=== PATIENT | female | born 1955 | race Caucasian/White ===

== ENCOUNTER → 2016-11-16 | Outpatient (CLI) | payer OTHER ==
[2016-11-16 18:51] LABS: URINE APPEARANCE CLEAR (CLEAR); URINE BILIRUBIN NEG (NEG); URINE COLOR YELLOW; URINE EPITHELIAL CELL AUTO 20-30 /lpf (0-5); URINE NITRITE NEG (NEG); UROBILINOGEN NEG (NEG)
[2016-11-16 18:57] LABS: MANUAL MICROSCOPIC REQUIRED? NO; REVIEW REQ? NO
== END | disposition home or self-care (01) ==
LOC: C.LABSPEC 17:17
PROVIDERS: ATTEND Nurse Practitioner
DX: R31.9 Hematuria, unspecified (principal)

== ENCOUNTER → 2016-11-23 | Outpatient (CLI) | payer OTHER ==
[2016-11-23 12:06] LABS: BASO % 0.5 %; BASO ABS # 0.03 K/uL (0-0.2); COMPLETE YES; EOS % 2.6 %; HEMATOCRIT 43.9 % (37-47); IG% 0.2 %; LYMPH % 36.9 %; LYMPH ABS # 2.13 K/uL (1.2-3.4); MEAN CELL VOLUME 89.8 fL (80-100); MEAN CORPUSCULAR HEMOGLOBIN 29.9 pg (25-34); MEAN CORPUSCULAR HGB CONC 33.3 g/dl (32-36); MEAN PLATELET VOLUME 10.7 fL (7.4-10.4); MONO % 8.8 %; PLATELET COUNT 266 K/uL (130-400); RED BLOOD COUNT 4.89 M/uL (4.2-5.4); WHITE BLOOD COUNT 5.78 K/uL (4.8-10.8)
[2016-11-23 12:25] LABS: ALT/SGPT 31 U/L (12-78); BLOOD UREA NITROGEN 19 mg/dl (7-18); BUN/CREATININE RATIO 19.3 (10-20); CALCIUM 8.9 mg/dl (8.5-10.1); CARBON DIOXIDE 25 mmol/L (21-32); CHLORIDE 110 mmol/L (98-107); CHOLESTEROL 218 mg/dl (0-200); CREATININE 0.98 mg/dl (0.60-1.20); GLUCOSE 99 mg/dl (70-99); POTASSIUM 3.8 mmol/L (3.5-5.1); SODIUM 140 mmol/L (136-145); TRIGLYCERIDES 122 mg/dl (0-150); VERY LOW DENSITY LIPOPROT CALC 24 mg/dl
[2016-11-23 12:35] LABS: ALKALINE PHOSPHATASE 98 U/L (45-117); AST/SGOT 20 U/L (15-37); CHOLESTEROL/HDL RATIO 4.1; HDL CHOLESTEROL 53 mg/dl; LDL CHOLESTEROL CALCULATED 141 mg/dl
[2016-11-23 12:39] LABS: ESTIMATED AVERAGE GLUCOSE 111 mg/dl; HA1C FLAG Normal (Normal)
--- NOTE | 2016-11-29 10:34 | CODING QUERY MEDICAL NECESSITY ---
CQSUPPORTING DIAGNOSIS NEEDED A supporting diagnosis is required for the test/procedure performed on this patient in order for us to be reimbursed by the patient's insurance. Please provide a supporting diagnosis for the following test/procedure listed below next to the test name along with your signature. *If there is no additional diagnosis for this patient that would support the following test/procedure please document that below next to the test/procedure. Test(s)/Procedure(s) that require a supporting diagnosis: DOS 11/23/16 VITAMIN D TEST HEOGLOBIN TEST Provider Signature: Date: Thank you Jaida Douglas Health Information Management Once completed, please kindly fax back to [phone] For questions please call [phone]
== END | disposition home or self-care (01) ==
LOC: C.LABPBG 07:25
PROVIDERS: ATTEND Nurse Practitioner
DX: Z00.00 Encounter for general adult medical examination without abnormal findings (principal); N39.0 Urinary tract infection, site not specified; E78.00 Pure hypercholesterolemia, unspecified

== ENCOUNTER → 2017-12-14 | Outpatient (CLI) | payer OTHER ==
[2017-12-14 13:50] LABS: ALBUMIN 3.7 gm/dl (3.4-5.0); ALKALINE PHOSPHATASE 100 U/L (45-117); ALT/SGPT 29 U/L (12-78); AST/SGOT 20 U/L (15-37); BLOOD UREA NITROGEN 23 mg/dl (7-18); CALCIUM 8.4 mg/dl (8.5-10.1); CARBON DIOXIDE 25 mmol/L (21-32); CHOLESTEROL 188 mg/dl (0-200); CREATININE 0.97 mg/dl (0.60-1.20); GLUCOSE 98 mg/dl (70-99); LDL CHOLESTEROL CALCULATED 118 mg/dl; POTASSIUM 4.2 mmol/L (3.5-5.1); SODIUM 139 mmol/L (136-145); TOTAL PROTEIN 7.3 gm/dl (6.4-8.2)
== END | disposition home or self-care (01) ==
LOC: C.LABPBG 08:03
PROVIDERS: ATTEND Nurse Practitioner Family
DX: Z00.00 Encounter for general adult medical examination without abnormal findings (principal); E03.9 Hypothyroidism, unspecified; E78.00 Pure hypercholesterolemia, unspecified; E55.9 Vitamin D deficiency, unspecified

== ENCOUNTER 2018-11-05 16:55 | Inpatient (IN) ==
[2018-11-05] MEDS ORDERED: HYDROCODONE/ACETAMOPHEN 5/325MG TAB PO ONE (17:15)
[2018-11-05] MEDS ORDERED: IBUPROFEN 600 MG TAB PO STA (17:15)
--- NOTE | 2018-11-05 17:35 | XRay Report ---
XR ankle LT min 3V routine CLINICAL HISTORY: medial ankle pain COMPARISON: None. DISCUSSION: There is an oblique fracture of the distal fibula. There is a transverse fracture of the medial malleolus. There is no evidence of dislocation. There are prominent Achilles insertional calci fications. IMPRESSION: Acute fractures of the medial malleolus and distal fibula. No evidence of dislocation Electronically signed by: Vern Williamson M.D. 11/05/2018 5:34 PM
--- NOTE | 2018-11-05 17:58 | Emergency Department Note ---
ED Provider Note CHIEF COMPLAINT: Ankle pain HISTORY OF PRESENT ILLNESS: This patient is a pleasant 62-year-old female who presents to the emergency department in a wheelchair for evaluation of left ankle pain. The patient's dog accidentally took her legs out from under her. She thinks that she twisted her ankle. She reports hearing a crack. She has been unable to bear weight on the area. She denies any pain into the foot. No numbness or tingling. She has not taken anything for pain. She denies any prior history of injury to this ankle. REVIEW OF SYSTEMS: 10 system review performed and negative unless noted in HPI or below. ALLERGIES: No known drug allergies MEDICATIONS: Synthroid, baby aspirin PMH: Hypothyroidism SOCIAL HISTORY: She does not smoke. She lives at home with her family. PHYSICAL EXAM: VITALS: Vitals are noted on the nurse's note and reviewed by myself. BP high but vital signs stable. GENERAL: 62-year-old female, in mild discomfort. SKIN: The skin was intact HEAD: Normocephalic atraumatic. EYES: Extraocular movements intact. NECK: Trachea midline. HEART: Regular rate and rhythm without murmurs gallops or rubs. LUNGS: Clear to auscultation bilaterally without wheezes, rales or rhonchi. No accessory muscle use. ABDOMEN: Positive bowel sounds x 4.Soft, MUSCULOSKELETAL: Diffuse edema noted over the malleoli right greater than left. No tenderness over the calcaneus or metatarsals. Capillary refill in the toes is less than 2 seconds. DP pulse +2. The patient is able to wiggle the toes. NEURO: Patient was alert and oriented to person place and time. Normal sensation to touch. No focal neurological deficits. EMERGENCY DEPARTMENT COURSE: I examined the patient. She was medicated with ibuprofen and Jess[place]. X-rays of the left ankle were reviewed by myself and read by radiology IMPRESSION: Acute fractures of the medial malleolus and distal fibula. No evidence of dislocation Electronically signed by: Vern Williamson M.D. 11/05/2018 5:34 PM Dictated: 11/05/18 1733 Transcribed: 11/05/18 173 These findings were discussed with the patient. She voiced understanding. She would like to see [facility]. Saline lock was established, labs were drawn. She declined more pain medication. The findings were discussed with Dr. Guzman from [facility]. The case was then discussed with case management and subsequently the [facility] hospitalist group. They kindly agreed to evaluate the patient for possible inpatient management. . Per orthopedic recommendation, the patient was placed in a posterior short leg Ortho-Glass splint with a stirrup. Neurovascular status was rechecked and intact. DIAGNOSIS: Bimalleolar ankle fracture DISPOSITION: Hospitalist consultation for possible inpatient management Impression & Plan Bimalleolar ankle fracture Past Med/Surg History Medical History Hypothyroidism Social History Preferred Language: Kazakh Communication Ability: Effective Merchant Banker Required: No Beliefs That Will Affect Care: None Current Living Situation: Spouse Other Information That Helps Us Care for You: No Feels Safe at Home: Yes Safety Concerns: Feels Safe At This Time Smoking Status: Never smoker Hx Alcohol Use: No Hx Substance Use: No Results & Data Vital Signs Vital Signs - 24 hr 11/05/18 16:56 11/05/18 20:55 Temperature 36.5 C Temperature Source Oral Sepsis Recent Fever Within 48 Hours No Sepsis Action Taken by Nursing No Action Required Pulse Rate 72 Pulse Rate [Right Finger] 53 L Respiratory Rate 18 17 Respiratory Effort / Characteristics Non-Labored Spontaneous Respiratory Depth Normal Blood Pressure 190/86 H Blood Pressure [Right Arm] 171/68 H Blood Pressure Mean 120 Blood Pressure Mean [Right Arm] 102 Blood Pressure Position Sitting Pulse Oximetry 97 97 Oxygen Delivery Method Room Air Room Air Laboratory Data Result diagrams: 11/05/18 19:31 11/05/18 19:31 Lab Results 11/05/18 11/05/18 11/05/18 Range/Units 19:31 19:31 19:31 WBC 11.08 H (4.8-10.8) K/uL RBC 4.86 (4.2-5.4) M/uL Hgb 15.0 (12.0-16.0) g/dL Hct 43.3 (37-47) % MCV 89.1 (80-100) fL MCH 30.9 (25-34) pg MCHC 34.6 (32-36) g/dL RDW Std Deviation 44.6 (36.4-46.3) fL RDW Coeff of Keshav 13.6 (11.5-14.5) % Plt Count 269 (130-400) K/uL MPV 10.5 H (7.4-10.4) fL Immature Gran % (Auto) 0.3 % Neut % (Auto) 76.1 % Lymph % (Auto) 15.4 % [place] % (Auto) 6.8 % Eos % (Auto) 1.0 % Baso % (Auto) 0.4 % Immature Gran # (Auto) 0.03 H (0.00-0.02) K/uL Neut # (Auto) 8.44 H (1.4-6.5) K/uL Lymph # (Auto) 1.71 (1.2-3.4) K/uL [place] # (Auto) 0.75 H (0.11-0.59) K/uL Eos # (Auto) 0.11 (0-0.5) K/uL Baso # (Auto) 0.04 (0-0.2) K/uL PT 10.0 (9.0-12.0) Seconds INR 1.0 (0.9-1.1) Sodium 139 (136-145) mmol/L Potassium 3.8 (3.5-5.1) mmol/L Chloride 107 (98-107) mmol/L Carbon Dioxide 26 (21-32) mmol/L Anion Gap 6.0 (3-11) BUN 19 H (7-18) mg/dl Creatinine 1.20 (0.6-1.2) mg/dl Est Cr Clr Drug Dosing 48.9 ml/min Est GFR ( Amer) 55.3 Est GFR (Non-Af Amer) 47.7 BUN/Creatinine Ratio 15.7 (10-20) Glucose 118 H (70-99) mg/dl Calcium 9.0 (8.5-10.1) mg/dl Administered Medications Acetaminophen (Ofirmev) 1,000 mg in 100 mls @ 400 mls/hr IV Q8H PRN PRN Reason: Pain or Fever Stop: 12/05/18 22:18 Last Infusion: 11/06/18 00:02 Dose: 0 mls/hr Documented by: [id number] Admin: 11/05/18 23:45 Dose: 400 mls/hr Documented by: [id number] Potassium Chloride/Sodium Chloride (Normal Saline W/20 Meq Kcl) 20 meq in 1,000 mls @ 100 mls/hr IV .Q10H SUSIE Stop: 12/05/18 22:44 Last Infusion: 11/06/18 00:02 Dose: 100 mls/hr Documented by: [id number] Infusion: 11/05/18 23:45 Dose: 0 mls/hr Documented by: [id number] Admin: 11/05/18 22:46 Dose: 100 mls/hr Documented by: [id number] Lorazepam (Ativan) 0.5 mg PO Q8 PRN PRN Reason: Anxiety Stop: 12/05/18 22:45 Last Admin: 11/05/18 22:55 Dose: 0.5 mg Documented by: [id number] Discontinued Medications Hydrocodone Bitart/Acetaminophen (Jessup 5/325) 1 tab PO ONE ONE Stop: 11/05/18 17:16 Last Admin: 11/05/18 17:20 Dose: 1 tab Documented by: [id number] Ibuprofen (Motrin) 600 mg PO NOW STA Stop: 11/05/18 17:16 Last Admin: 11/05/18 17:19 Dose: 600 mg Documented by: [id number] Discharge Plan Visit Data *Final* Discharge Date/Time: 11/05/18 22:08 Chief Complaint: Ankle Pain Stated Complaint: L ANKLE PAIN ED Provider: Marcelino Andrews ED Midlevel Provider: Anette Bourgeois Discharge Problem: Bimalleolar ankle fracture Patient Disposition: Admitted As Inpatient Condition: Fair Discharge Instructions Interventions: ED Discharge Assessment Last Done: 11/05/18 22:08 Discharge Problem: Bimalleolar ankle fracture Qualifiers: Encounter type: initial encounter Fracture type: closed Laterality: left Qualified Code(s): S82.842A - Displaced bimalleolar fracture of left lower leg, initial encounter for closed fracture
[2018-11-05 19:43] LABS: Basophils # (auto) 0.04 K/uL (0-0.2); Basophils % (auto) 0.4 %; Eosinophils # (auto) 0.11 K/uL (0-0.5); Hematocrit (blood only) 43.3 % (37-47); Immature Granulocytes # (auto) 0.03 K/uL (0.00-0.02); Immature Granulocytes % (auto) 0.3 %; Lymphocytes # (auto) 1.71 K/uL (1.2-3.4); Lymphocytes % (auto) 15.4 %; Mean Corpuscular Hgb Conc 34.6 g/dL (32-36); Mean Corpuscular Volume 89.1 fL (80-100); Mean Platelet Volume 10.5 fL (7.4-10.4); Monocytes # (auto) 0.75 K/uL (0.11-0.59); Monocytes % (auto) 6.8 %; Neutrophils # (auto) 8.44 K/uL (1.4-6.5); Neutrophils % (auto) 76.1 %; Platelet Count 269 K/uL (130-400); RDW Coefficient of Variation 13.6 % (11.5-14.5); RDW Standard Deviation 44.6 fL (36.4-46.3); Red Blood Count 4.86 M/uL (4.2-5.4); White Blood Count 11.08 K/uL (4.8-10.8)
[2018-11-05 20:01] LABS: BUN Creatinine Ratio 15.7 (10-20); Creatinine Clr Calc Pharmacy 48.9 ml/min; Est GFR (African American) 55.3; Est GFR (Non-African American) 47.7; Potassium 3.8 mmol/L (3.5-5.1)
--- NOTE | 2018-11-05 21:00 | History & Physical Report ---
Date of Service November 05, 2018 Assessment & Plan (1) Bimalleolar ankle fracture: Left bimalleolar ankle fracture- N.p.o. after midnight NSS + KCl 20 mEq at 100 mils per hour. Acetaminophen 1 g IV every 8 hours PRN mild pain or temperature. Morphine sulfate 2 mg IV every 4 hours PRN severe pain. Zofran 4 mg IV every 6 hours PRN. Lorazepam 0.5 mg p.o. every [address] Consult Dr. Guzman from [facility], he is already aware of patient. Present on Admission?: Yes (2) Hypothyroidism (acquired): Continue levothyroxine sodium 100 mcg p.o. daily. Present on Admission?: Yes History of Present Illness Chief Complaint: The patient presents to the emergency department with complaint of severe left ankle pain after she was made off balance accidentally by her dog, and twisted her right ankle. Primary Care Provider: Radha Martinez MD The patient is a 62-year-old female with a past medical history including hypothyroidism, who was accidentally made off balance by her dog, twisting her left ankle, resulting in immediate severe pain. She was brought into the emergency department in a wheelchair. Work-up in the ED included x-rays which showed a left medial malleolus fracture and distal fibula fracture. She was placed in a support immobilizer, and referred for evaluation for admission. She does report a history of a fracture in her right ankle, by a different dog in the past. Allergies Allergy/AdvReac Type Severity Reaction Status Date / Time No Known Allergies Allergy Verified 11/05/18 17:14 Home Medications Home Medications Medication Instructions Recorded Confirmed Type aspirin 81 mg PO QAM 11/05/18 11/05/18 History aspirin [Aspirin Low Dose] 81 mg PO DAILY 11/05/18 11/05/18 History cholecalciferol (vitamin D3) 2,000 unit PO DAILY 11/05/18 11/05/18 History [Vitamin D3] cholecalciferol (vitamin D3) 2,000 unit PO QAM 11/05/18 11/05/18 History [Vitamin D3] levothyroxine 100 mcg PO DAILY 11/05/18 11/05/18 History levothyroxine 100 mcg PO QAM 11/05/18 11/05/18 History Past Med/Surg History Medical History Hypothyroidism Social History Preferred Language: Ukrainian Communication Ability: Effective Patrol Police Sergeant Required: No Beliefs That Will Affect Care: None Current Living Situation: Spouse Other Information That Helps Us Care for You: No Feels Safe at Home: Yes Safety Concerns: Feels Safe At This Time Smoking Status: Never smoker Hx Alcohol Use: No Hx Substance Use: No Review of Systems Review of Systems: The patient denies chest pain, palpitations, shortness of breath, dyspnea on exertion, cough, lower extremity swelling, sore throat, fevers, chills, sweats, weight change, fatigue, nausea, vomiting, diarrhea , constipation, abdominal pain, pelvic pain, blood in urine or stool, dysuria, urinary frequency or urgency, lightheadedness, dizziness, headache, memory loss, loss of consciousness, rash, abnormal bruising or bleeding, generalized weakness, numbness or tingling in arms, generalized arthralgias or myalgias, back or neck pain, or night sweats. The review of systems is otherwise negative other than for that already noted above, and at least 10 systems have been reviewed. Physical Exam Physical Exam: The patient is awake, alert and oriented 3, well developed and well nourished, normocephalic and atraumatic, lying in bed and in no acute distress. HEENT--PERRL, EOMI, mucous membranes and oropharynx dry. Neck--supple. No JVD. No bruits. Thyroid normal, trachea midline, no adenopathy. Heart--normal S1 and S2. No murmurs, rubs or gallops. Lungs--clear bilaterally, no respiratory distress, no accessory muscle use. Abdomen--normal bowel sounds and soft. Nontender. Nondistended, no hernias or masses, no organomegaly. Extremities--no cyanosis or clubbing. No edema. Left foot is in a wrapped immobilizer up to the knee. Dermatologic--normal skin turgor, normal color, no abnormal lymph nodes, no rash. Neurologic--cranial nerves II through XII grossly intact. Rheumatologic--normal range of motion limited by left lower extremity. Psychiatric--normal affect. Results & Data Vital Signs (Past 12 Hours) Vital Signs Temp Pulse Pulse Resp BP BP Pulse Ox 11/05/18 20:55 53 L 17 171/68 H 97 11/05/18 16:56 97.7 F 72 18 190/86 H 97 Laboratory Results Laboratory Results WBC 11.08 K/uL (4.8-10.8) H 11/05/18 19:31 RBC 4.86 M/uL (4.2-5.4) 11/05/18 19:31 Hgb 15.0 g/dL (12.0-16.0) 11/05/18 19:31 Hct 43.3 % (37-47) 11/05/18 19:31 MCV 89.1 fL (80-100) 11/05/18 19:31 MCH 30.9 pg (25-34) 11/05/18 19:31 MCHC 34.6 g/dL (32-36) 11/05/18 19:31 RDW Std Deviation 44.6 fL (36.4-46.3) 11/05/18 19:31 RDW Coeff of Keshav 13.6 % (11.5-14.5) 11/05/18 19:31 Plt Count 269 K/uL (130-400) 11/05/18 19:31 MPV 10.5 fL (7.4-10.4) H 11/05/18 19:31 Immature Gran % (Auto) 0.3 % 11/05/18 19:31 Neut % (Auto) 76.1 % 11/05/18 19:31 Lymph % (Auto) 15.4 % 11/05/18 19:31 [place]rick % (Auto) 6.8 % 11/05/18 19:31 Eos % (Auto) 1.0 % 11/05/18 19:31 Baso % (Auto) 0.4 % 11/05/18 19:31 Immature Gran # (Auto) 0.03 K/uL (0.00-0.02) H 11/05/18 19:31 Neut # (Auto) 8.44 K/uL (1.4-6.5) H 11/05/18 19:31 Lymph # (Auto) 1.71 K/uL (1.2-3.4) 11/05/18 19:31 Merrick # (Auto) 0.75 K/uL (0.11-0.59) H 11/05/18 19:31 Eos # (Auto) 0.11 K/uL (0-0.5) 11/05/18 19:31 Baso # (Auto) 0.04 K/uL (0-0.2) 11/05/18 19:31 PT 10.0 Seconds (9.0-12.0) 11/05/18 19:31 INR 1.0 (0.9-1.1) 11/05/18 19:31 Sodium 139 mmol/L (136-145) 11/05/18 19:31 Potassium 3.8 mmol/L (3.5-5.1) 11/05/18 19:31 Chloride 107 mmol/L (98-107) 11/05/18 19:31 Carbon Dioxide 26 mmol/L (21-32) 11/05/18 19:31 Anion Gap 6.0 (3-11) 11/05/18 19:31 BUN 19 mg/dl (7-18) H 11/05/18 19:31 Creatinine 1.20 mg/dl (0.6-1.2) 11/05/18 19:31 Est Cr Clr Drug Dosing 48.9 ml/min 11/05/18 19:31 Est GFR ( Amer) 55.3 11/05/18 19:31 Est GFR (Non-Af Amer) 47.7 11/05/18 19:31 BUN/Creatinine Ratio 15.7 (10-20) 11/05/18 19:31 Glucose 118 mg/dl (70-99) H 11/05/18 19:31 Calcium 9.0 mg/dl (8.5-10.1) 11/05/18 19:31 Diagnostic Findings [facility], [place] [phone] XRay Report Patient: Emiliana CRISTOBAL Date: 11/05/18 MR#: [id number]: [facility] Acct ID:[id number]: [facility] Zip[facility] [place] [address] Age: 62Location: ED Sex: F Room/Bed: Att Phy: Diagnosis: L ANKLE PAIN Iraida Phy: Radha Martinez MDService Date: 11/05/18 [facility] Phy: Interpreting Phy: Vern Williamson MD Admit Phy: Ordering Phy: Anette Bourgeois PA-C cc: ~ XR ankle LT min 3V routine CLINICAL HISTORY: medial ankle pain COMPARISON: None. DISCUSSION: There is an oblique fracture of the distal fibula. There is a transverse fracture of the medial malleolus. There is no evidence of dislocation. There are prominent Achilles insertional calcifications. IMPRESSION: Acute fractures of the medial malleolus and distal fibula. No evidence of dislocation Electronically signed by: Vern Williamson M.D. 11/05/2018 5:34 PM Dictated: 11/05/18 1733 Transcribed: 11/05/18 1733 Code Status & VTE Plan Code Status Full code VTE Prophylaxis Plan VTE Prophylaxis will be ordered: Yes PG Care Time/CCT Total # of Minutes Spent Total Time Spent with Patient: Total time spent is greater than 50% in coordination of care (as documented) at patient's floor/unit and/or counseling patient: (1) Bimalleolar ankle fracture Encounter type: initial encounter Fracture type: closed Laterality: left Qualified Code(s): S82.842A - Displaced bimalleolar fracture of left lower leg, initial encounter for closed fracture
[2018-11-05] MEDS ORDERED: ONDANSETRON INJ 2 MG/ML 2 ML VIAL IV PRN (22:19)
[2018-11-05] MEDS ORDERED: ACETAMINOPHEN 1,000 MG/100 ML VIAL IV PRN (22:19)
[2018-11-05] MEDS ORDERED: MoRPHine SULFATE 2 MG/ML CARP IV PRN (22:19)
[2018-11-05] MEDS: NSS + 20MEQ KCL 20 MEQ/1,000 ML BAG IV SCH (22:46)
[2018-11-05] MEDS ORDERED: LORazepam 0.5 MG TAB PO PRN (22:46)
[2018-11-06 06:24] LABS: Basophils # (auto) 0.02 K/uL (0-0.2); Basophils % (auto) 0.2 %; Eosinophils # (auto) 0.19 K/uL (0-0.5); Eosinophils % (auto) 2.3 %; Hematocrit (blood only) 39.3 % (37-47); Hemoglobin 13.4 g/dL (12.0-16.0); Immature Granulocytes # (auto) 0.01 K/uL (0.00-0.02); Immature Granulocytes % (auto) 0.1 %; Lymphocytes # (auto) 2.01 K/uL (1.2-3.4); Lymphocytes % (auto) 23.9 %; Mean Corpuscular Hgb Conc 34.1 g/dL (32-36); Mean Corpuscular Volume 88.3 fL (80-100); Mean Platelet Volume 10.4 fL (7.4-10.4); Monocytes % (auto) 9.5 %; Neutrophils # (auto) 5.37 K/uL (1.4-6.5); Platelet Count 215 K/uL (130-400); RDW Coefficient of Variation 13.6 % (11.5-14.5); RDW Standard Deviation 44.2 fL (36.4-46.3); Red Blood Count 4.45 M/uL (4.2-5.4)
[2018-11-06] MEDS ORDERED: LEVOTHYROXINE SODIUM 100 MCG TABLET PO SCH (06:30)
[2018-11-06 06:46] LABS: Partial Thromboplastin Ratio 1.1; Partial Thromboplastin Time 30.3 Seconds (21.0-31.0); Prothrombin Time 10.4 Seconds (9.0-12.0)
[2018-11-06 06:59] LABS: Albumin Level 3.2 gm/dl (3.4-5.0); BUN Creatinine Ratio 16.5 (10-20); Calcium 8.4 mg/dl (8.5-10.1); Creatinine Clr Calc Pharmacy 67.5 ml/min; Est GFR (African American) 80.5; Est GFR (Non-African American) 69.4
[2018-11-06 07:02] LABS: Albumin Globulin Ratio 0.9 (0.9-2); Bilirubin,Total 0.8 mg/dl (0.2-1); Globulin 3.5 gm/dl (2.5-4.0); Total Protein 6.7 gm/dl (6.4-8.2)
[2018-11-06] MEDS: NSS + 20MEQ KCL 20 MEQ/1,000 ML BAG IV SCH (08:14)
[2018-11-06] MEDS ORDERED: CHOLECALCIFEROL 1,000 UNITS TAB PO SCH (09:00)
--- NOTE | 2018-11-06 09:21 | Orthopedic Consultation ---
Date of Consultation November 06, 2018 Assessment & Plan (1) Bimalleolar fracture of left ankle: Continue Short leg splint. NWB on the LLE at all times. At this time, we will treat the fx conservatively. However, we discussed the possibility of ORIF of the fx in the future. We will plan to follow up with the patient in 1 week for x-rays in the splint and evaluation for continued conservative care vs. ORIF. Pain control per medicine. OK to discharge from an orthopedic standpoint. Will order regular diet for this morning. Thank you for the consultation. History of Present Illness Reason for Consultation: left ankle pain/fracture Attending Physician: Kareem Yun History of Present Illness This is a patient who was in her yard yesterday and her dog ran into her. She then twisted the left ankle and felt/heard a pop in the ankle. She had significant pain and was brought to [facility] ER. X-rays noted a bimalleolar ankle fx. She was placed in a splint and admitted for pain control. Allergies Allergy/AdvReac Type Severity Reaction Status Date / Time No Known Allergies Allergy Verified 11/05/18 17:14 Home Medications Home Medications Medication Instructions Recorded Confirmed Type aspirin 81 mg PO QAM 11/05/18 11/05/18 History aspirin [Aspirin Low Dose] 81 mg PO DAILY 11/05/18 11/05/18 History cholecalciferol (vitamin D3) 2,000 unit PO DAILY 11/05/18 11/05/18 History [Vitamin D3] cholecalciferol (vitamin D3) 2,000 unit PO QAM 11/05/18 11/05/18 History [Vitamin D3] levothyroxine 100 mcg PO DAILY 11/05/18 11/05/18 History levothyroxine 100 mcg PO QAM 11/05/18 11/05/18 History Patient History Medical History Hypothyroidism Social History Preferred Language: Greenlandic Communication Ability: Effective Apparatus Operator Required: No Beliefs That Will Affect Care: None Current Living Situation: Spouse Other Information That Helps Us Care for You: No Feels Safe at Home: Yes Safety Concerns: Feels Safe At This Time Smoking Status: Never smoker Hx Alcohol Use: No Hx Substance Use: No Physical Exam ENMT: external ear and nose normal, oropharynx normal Neck: trachea midline, no thyromegaly Respiratory: normal respiratory effort Musculoskeletal: Extremities: + lower extremity abnormal to inspection Left (ankle: tender at medial/lateral ankle. Posterior/stirrup splint in place. No ROM or strength done. NV intact LLE.) Neurologic: normal touch/pain/proprioception Psychiatric: A+Ox3, euthymic affect Results & Data Vital Signs (Past 12 Hours) Vital Signs Temp Pulse Pulse Resp BP BP BP 11/06/18 07:04 36.8 C 60 19 171/73 H 11/05/18 23:52 36.8 C 152/69 H 11/05/18 23:16 36.4 C L 66 14 189/87 H 193/90 H 11/05/18 22:44 36.9 C 54 L 16 173/77 H 11/05/18 22:35 36.7 C 68 18 227/83 H 11/05/18 22:08 61 17 180/72 H Pulse Ox 11/06/18 07:04 94 11/05/18 23:52 11/05/18 23:16 99 11/05/18 22:44 99 11/05/18 22:35 99 11/05/18 22:08 96
[2018-11-06] MEDS ORDERED: HYDROCODONE/ACETAMOPHEN 5/325MG TAB PO PRN (14:55)
[2018-11-06] MEDS ORDERED: HYDROCODONE/ACETAMOPHEN 5/325MG TAB PO STA (14:56)
--- NOTE | 2018-11-14 09:43 | Discharge Summary ---
Date of Service November 06, 2018 Admission HPI Per Admitting Provider The patient is a 62-year-old female with a past medical history including hypothyroidism, who was accidentally made off balance by her dog, twisting her left ankle, resulting in immediate severe pain. She was brought into the emergency department in a wheelchair. Work-up in the ED included x-rays which showed a left medial malleolus fracture and distal fibula fracture. She was placed in a support immobilizer, and referred for evaluation for admission. She does report a history of a fracture in her right ankle, by a different dog in the past. Principal Diagnosis Left Bimalleolar ankle fracture Discharge Exam The patient is awake, alert and oriented 3, well developed and well nourished, normocephalic and atraumatic, l HEENT--PERRL, EOMI, mucous membranes and oropharynx dry. Neck--supple. No JVD. No bruits. Thyroid normal, trachea midline, no adenopathy. Heart--normal S1 and S2. No murmurs, rubs or gallops. Lungs--clear bilaterally, no respiratory distress, no accessory muscle use. Abdomen--normal bowel sounds and soft. Nontender. Nondistended, no hernias or masses, no organomegaly. Extremities--no cyanosis or clubbing. No edema. Left foot is in posterior stirup splint Dermatologic--normal skin turgor, normal color, no abnormal lymph nodes, no rash. Neurologic--cranial nerves II through XII grossly intact. Rheumatologic--normal range of motion limited by left lower extremity. Psychiatric--normal affect Discharge Data Allergies Allergy/AdvReac Type Severity Reaction Status Date / Time No Known Allergies Allergy Verified 11/05/18 17:14 Consultations 11/05/18 19:17 ED Decision to Admit Stat 11/05/18 22:19 Consult Orthopedic Surgery Stat 11/05/18 22:45 Consult Orthopedic Surgery Routine Hospital Course (1) Bimalleolar ankle fracture: Left bimalleolar ankle fracture- Appreciate input from Ortho. Continues non srgical conservative management. Continue Short leg splint. NWB on the LLE at all times. At this time, we will treat the fx conservatively. However, we discussed the possibility of ORIF of the fx in the future. We will plan to follow up with the patient in 1 week for x-rays in the splint and evaluation for continued conservative care vs. ORIF. Pain control per medicine. OK to discharge from an orthopedic standpoint. Will order regular diet for this morning. Thank you for the consultation. Discharge with walker and knee scooter. (2) Hypothyroidism (acquired): Continue levothyroxine sodium 100 mcg p.o. daily. Total Time Total Time Spent Total Time Spent (In Minutes): 32 Total Time Includes: Examination of the Patient, Discharge Planning and Medication Reconciliation Discharge Plan Discharge Items Patient Disposition: Home - Self-Care Reason For Visit: LT MEDIAL MALLEOLUS, DISTAL FIBULA FRACTURE Discharge Diagnosis: Left medial gerry Condition: Fair Discharge Goals: Decrease discomfort Activity: As commented below Activity Comment: left leg non weight bearing. Weightbearing: Left non-weightbearing Non-emergency contact: Primary Care Provider Call non-emergency contact if: you have any medication questions Follow-up/Referrals: Radha Martinez MD [Primary Care Provider] - Jan Guzman DO [Surgeon] - (Call to schedule an appointment for 11.07.18 or 11.08.18 for x-rays of the left ankle.) Diet: Regular Addtl Provider Instructions: recommend followup with ortho in 1-2 weeks. Do not bear weight on affected extremity. Please use scooter and walker. May use for mild pain: acetaminophen (tylenol) in addition to Robinson. However, do not exceed 3 gr or 3000 mg of acetaminophen per 24 hours. Robinson contains 325mg of acetaminophen Prescriptions: New hydrocodone-acetaminophen [Robinson] 5-325 mg Tablet 1 tab PO Q6H PRN (Reason: pain) Qty: 20 RF: 0 Continued levothyroxine 100 mcg Tablet 100 mcg PO DAILY RF: 0 cholecalciferol (vitamin D3) [Vitamin D3] 2,000 unit Capsule 2,000 unit PO DAILY RF: 0 aspirin 81 mg Tablet,Delayed Release (Dr/Ec) 81 mg PO QAM RF: 0 cholecalciferol (vitamin D3) [Vitamin D3] 2,000 unit Capsule 2,000 unit PO QAM RF: 0 Discontinued aspirin [Aspirin Low Dose] 81 mg Tablet,Delayed Release (Dr/Ec) 81 mg PO DAILY RF: 0 levothyroxine 100 mcg Tablet 100 mcg PO QAM RF: 0 Stand-Alone Forms: My [facility], Op[facility] Pain [facility], Work/School Release (Inpt) Discharge Orders: Discharge Order (Routine); Ordered 11/06/18 Ordered By: Kareem Yun Admission Data Admit Date/Time: 11/05/18 20:57 Attending Provider: Kareem Yun Admit Provider: Robin Bailey Primary Care Provider: Radha Martinez Other Providers: Jan Guzman Rick D Service: Surgical Services Other Interventions: Discharge Summary Assessment (RN) Last Done: 11/06/18 10:06 DC Date/Time DO NOT enter until pt leaves facility: 11/06/18 16:35
== END 2018-11-06 16:35 | disposition home or self-care (01) | DRG 563 ==
LOC: ED 16:55 → SUATTDRO 20:57 → 3W 20:57
DX: Z79.82 Long term (current) use of aspirin; S82.842A Displaced bimalleolar fracture of left lower leg, initial encounter for closed fracture; Y92.89 Other specified places as the place of occurrence of the external cause; E03.9 Hypothyroidism, unspecified; Y93.K9 Activity, other involving animal care; X50.1XXA Overexertion from prolonged static or awkward postures, initial encounter